=== PATIENT | female | born 1975 | race Caucasian/White ===

== ENCOUNTER → 2016-09-05 20:50 | Emergency (ER) | payer MEDICARE, OTHER ==
[~2016-09-05 20:50] MED LIST: ABILIFY5 PO; BUDEPRION150 MG; CELEXA20 PO; ESTRACE1 MG; FISH-EPA1000 MG PO; LEVSINTAB SL; LEXAPRO20 PO; MAX25 PO; METHOC500B PO; NEUR400 PO; NITROSTAT0.4 MG SL; OXYCON10; PRILO PO; PRINZIDE1 TA1 PO; PROAIR HFA INH; VITE1000 PO; ZOCOR40
== END | disposition left against medical advice (07) ==
LOC: ER 20:50
DX: Z53.21 Procedure and treatment not carried out due to patient leaving prior to being seen by health care provider (principal)
CPT/HCPCS: J1170; J2405